=== PATIENT | male | born 1965 | race Caucasian/White ===

== ENCOUNTER 2018-01-27 07:51 | Emergency (ER) | payer SELFPAY ==
[~2018-01-27] VITALS: Ht 177.8 cm; Wt 82.0 kg
[2018-01-27] MEDS ORDERED: FAMOTIDINE 20MG/2ML VIAL IV STA (09:16)
[2018-01-27] MEDS ORDERED: ONDANSETRON HCL 4MG/2ML VIAL IV STA (09:16)
[2018-01-27] MEDS ORDERED: SODIUM CHLORIDE 0.9% 1,000 ML IV ONE (09:16)
[2018-01-27 09:39] LABS: BASOPHILS % 0.4 % (0.0-2.0); EOSINOPHILS % 0.2 % (0.0-5.0); HEMATOCRIT. 39.9 % (42.0-52.0); HEMOGLOBIN. 13.8 g/dL (14.0-18.0); MEAN CORPUSCULAR HEMOGLOBIN 31.4 pg (28.0-32.0); MEAN CORPUSCULAR VOLUME 90.6 fL (80.0-94.0); MEAN PLATELET VOLUME 7.9 fl (7.4-10.4); MONOCYTES % 8.3 % (2.0-8.0); NEUTROPHILS % 66.1 % (40.0-76.0); PLATELET 149 x1000/uL (130-400); RED BLOOD CELL COUNT 4.41 mill/uL (4.7-6.1)
[2018-01-27 09:45] LABS: CHLORIDE 106 mEq/L (98-107)
[2018-01-27 09:51] LABS: ETHANOL BLOOD 230 mg/dL
[2018-01-27 11:04] VITALS: BP 146/91
== END 2018-01-27 11:07 | disposition home or self-care (01) ==
LOC: ER 08:44
DX: F10.129 Alcohol abuse with intoxication, unspecified (principal); R11.10 Vomiting, unspecified; R19.7 Diarrhea, unspecified; I10 Essential (primary) hypertension
CPT/HCPCS: 36415; 71045; 80053; 83690; 85025; 96361; 96374; 96375; 99285; G0482; J2405; J3490; J7030; J7040